=== PATIENT | female | born 1940 | race Two or more races ===

== ENCOUNTER 2024-02-11 18:53 | Emergency (ER) | payer MEDICARE ==
[~2024-02-11] VITALS: Ht 157.5 cm; Wt 75.4 kg
[2024-02-11 21:58] VITALS: PULSE 70; RESP 18; O2SAT 98
[2024-02-11 21:59] VITALS: BP 124/52; PULSE 70; RESP 18; TEMP 97.4; O2SAT 95
== END 2024-02-11 21:58 | disposition home or self-care (01) ==
LOC: ER 18:53
DX: S00.03XA Contusion of scalp, initial encounter (principal); I48.91 Unspecified atrial fibrillation; Z79.899 Other long term (current) drug therapy; W18.39XA Other fall on same level, initial encounter; Y93.89 Activity, other specified; Y92.89 Other specified places as the place of occurrence of the external cause; Y99.8 Other external cause status
CPT/HCPCS: 70450; 82962; 93005